=== PATIENT | female | born 1995 | race American Indian/Alaskan Native ===

== ENCOUNTER 2018-05-18 18:58 | Emergency (ER) | payer SELFPAY ==
[2018-05-18 19:05] VITALS: BP 110/65
[2018-05-18 20:20] LABS: HCG Qualitative,Urine Negative (Negative)
[2018-05-18 20:22] LABS: Bilirubin,Urine NEG (Negative); Blood,Urine NEG (Negative); Color,Urine Yellow (Yellow); Mucus,Urine FEW /HPF; Protein,Urine <15 mg/dL mg/dL (Negative)
== END 2018-05-18 21:47 | disposition left against medical advice (07) ==
LOC: ED 18:58
DX: R10.9 Unspecified abdominal pain (principal); M54.9 Dorsalgia, unspecified; Z53.21 Procedure and treatment not carried out due to patient leaving prior to being seen by health care provider
CPT/HCPCS: 81001; 81025